=== PATIENT | male | born 1945 | race Caucasian/White ===

== ENCOUNTER → 2017-12-15 | Outpatient (CLI) | payer OTHER, BC ==
[~2017-12-15] MED LIST: TYLENOL EXTRA500 MG PO
== END | disposition home or self-care (01) ==
LOC: AMB 13:49
PROC: 0HB4XZZ Excision of Neck Skin, External Approach (ICD-10-PCS; principal; 2017-12-15)
DX: L72.0 Epidermal cyst (principal)
CPT/HCPCS: 88304